=== PATIENT | male | born 1950 | race Caucasian/White ===

== ENCOUNTER 2025-08-08 20:56 | Inpatient (IN) | payer OTHER ==
[~2025-08-08] VITALS: Ht 182.9 cm; Wt 58.0 kg
[2025-08-08 23:30] VITALS: BP 104/87
[2025-08-08] MEDS ORDERED: Amiodarone HCl 450 MG in NS 250 ML IV SCH (23:35)
[2025-08-08 23:45] VITALS: BP 110/89
[2025-08-08] MEDS ORDERED: FLU VACC TS2025(65UP)/MF59C/PF 45 MCG/0.5 ML SYRINGE IM SCH (23:50)
[2025-08-09] VITALS (34 sets, daily range): BP systolic 80–131; BP diastolic 54–115
[2025-08-09 00:04] LABS: BASOPHILS ABSOLUTE AUTO 0.04 K/mm3 (0.00-0.23); BASOPHILS PERCENT AUTO 1 % (0-2); EOSINOPHILS ABSOLUTE AUTO 0.00 K/mm3 (0.00-0.68); EOSINOPHILS PERCENT AUTO 0 % (0-6); Hematocrit 28.8 % (37.0-53.0); Hemoglobin 8.5 g/dL (13.5-17.5); IMMATURE GRAN ABSOLUTE AUTO 0.02 K/mm3 (0.00-0.10); IMMATURE GRAN PERCENT AUTO 0 % (0-1); LYMPHOCYTES ABSOLUTE AUTO 0.65 K/mm3 (0.84-5.20); LYMPHOCYTES PERCENT AUTO 8 % (21-46); MONOCYTES ABSOLUTE AUTO 0.45 K/mm3 (0.16-1.47); MONOCYTES PERCENT AUTO 5 % (4-13); Mean Corpuscular HGB Conc 29.5 g/dL (31.5-36.5); Mean Corpuscular Volume 87 fL (80-100); NEUTROPHILS ABSOLUTE AUTO 7.27 K/mm3 (1.96-9.15); NEUTROPHILS PERCENT AUTO 86 % (41-73); NRBC ABSOLUTE 0.00 K/mm3 (0.00-0.02); NRBC Auto 0.0 /100 WBC (0.0-0.2); Platelet Count 343 K/mm3 (150-400); RDW Coefficient Variation 18.7 % (11.7-14.2); RDW Standard Deviation 59.7 fL (35.1-46.3)
[2025-08-09 00:24] LABS: Alanine Aminotransfer (ALT/SGP 22.0 U/L (12-78); Albumin, Blood 2.3 g/dL (3.4-5.0); Albumin/Globulin Ratio 0.5 (0.8-1.8); Anion Gap 8.0 mmol/L (3-11); Aspartate Aminotrans (AST/SGOT 18.0 U/L (12-37); Bilirubin, Total 1.0 mg/dL (0.1-1.0); Blood Urea Nitrogen 23.0 mg/dL (8-24); CO2, Blood 27.0 mmol/L (21-32); Calcium, Blood 9.2 mg/dL (8.5-10.1); Chloride, Blood 105.0 mmol/L (98-108); Creatinine, Blood 0.83 mg/dL (0.60-1.20); Globulin, Blood 5.1 g/dL (2.2-4.0); Glucose, Blood 162.0 mg/dL (70-99); Magnesium, Blood 2.4 mg/dL (1.6-2.4); Phosphorus, Blood 3.3 mg/dL (2.5-4.9); Potassium, Blood 4.5 mmol/L (3.5-5.5); Sodium, Blood 135.0 mmol/L (136-145); Total Protein, Blood 7.4 g/dL (6.4-8.2)
[2025-08-09] MEDS ORDERED: HYDROcodone 7.5-APAP 325 TAB PO PRN (00:40)
--- NOTE | 2025-08-09 01:07 | NUR ---
ASSUMED CARE PT ARRIVED TO UNIT VIA GURNEY WITH EMS ON 1L NC, LEVO AT 2 AND AMIO AT 1MG. VSS. STAGE 2 COCCYX WOUND WITH MEPALEX C/D/I, PROVIDER AWARE. WAS ABLE TO PLACE LEVO ON SB SHORTLY AFTER ARRIVAL R/T MAPS >80. PT WAS ALSO TITRATED TO ROOM AIR WITH SATS > 94%. AMIO DECREASED TO 0.5MG AT 0050, SCHEDULED TO BE STOPPED AT 1850 ON 08/09 WHICH IS THE 24HR MAGDIEL. BEDSIDE SWALLOW EVAL DONE, PT ABLE TO CLEAR THROAT WELL, DIET ORDERED. SISTER CAME TO BEDSIDE FOR PROVIDER CONSULT W/ HOSP RESIDENT. AND DAUGHTER TO VISIT LATER THIS AM. CALL LIGHT IN REACH.
[2025-08-09] MEDS ORDERED: Vancomycin (Pharmacy Consult) IV SCH (01:20)
[2025-08-09] MEDS ORDERED: LevoFLOXacin 750 MG/D5W 150ML 150 ML IV SCH ×2 (01:30→21:00)
[2025-08-09] MEDS ORDERED: Piperacillin/Tazobactam Sod 4.5 GM in NS 100 ML IV SCH ×2 (01:32→10:00)
[2025-08-09] MEDS ORDERED: NS 250 ML IV PRN (02:15)
--- NOTE | 2025-08-09 05:01 | NUR ---
SHIFT SUMMARY PT A/OX3, CONFUSION OF WHICH TOWN HE IS IN. ABLE TO MAKE NEEDS KNOWN. VSS, MAPS > 65, PT HAS BEEN OFF LEVOPHED SINCE GETTING SETTLED INTO THE UNIT. HR 100'S, AMIO INFUSING AT 0.5MG, TO BE SHUT OFF AT 1850 LATER TODAY. REMAINS ON ROOM AIR, SATS >98%. TOLERATING PO INTAKE. KNAPP IN PLACE AND DRAINING TO GRAVITY, GOOD UOP NOTED. PAIN MANAGED WITH PO MEDS PER NOV. PLAN FOR ECHO AND CHEST CT ON DAY SHIFT. MED REC NOT ABLE TO BE COMPLETED, HAS MED LIST AT HOME, SHE PLANS TO VISIT LATER TODAY. NO ACUTE EVENTS. CALL LIGHT IN REACH.
[2025-08-09] MEDS ORDERED: Lactobacil 2-S.Thermo-Bifido 1 1 Cap PO SCH (09:00)
[2025-08-09] MEDS ORDERED: FentaNYL Citrate 50 MCG/ML 2 ML Injection IV PRN (09:30)
[2025-08-09] MEDS ORDERED: XARELTO20 MG PO (11:23)
[2025-08-09] MEDS ORDERED: BENZ100A PO (11:24)
[2025-08-09] MEDS ORDERED: FERSU300 PO (11:25)
[2025-08-09] MEDS ORDERED: THERA-D2000 UNIT PO (11:25)
[2025-08-09] MEDS ORDERED: OXYC10TA19 PO (11:26)
[2025-08-09] MEDS ORDERED: Flonase 0.05% N16 GM (11:26)
[2025-08-09] MEDS ORDERED: HYDR1TAB94 PO (11:27)
[2025-08-09] MEDS ORDERED: TRAM50 PO (11:27)
[2025-08-09] MEDS ORDERED: PANT40 PO (11:28)
[2025-08-09] MEDS ORDERED: GABA300 PO (11:28)
[2025-08-09] MEDS ORDERED: METO25ER PO (11:28)
[2025-08-09] MEDS ORDERED: Morphine Sulfate 20 MG/1ML 1 ML Oral Syringe PO PRN (12:40)
--- NOTE | 2025-08-09 12:56 | NUR ---
PT UPDATED , (ARMANDO) AND DAUGHTER (LILIAM) AT BEDSIDE. DR. SHAH AND THAI PALLIATIVE CARE NURSE TO ROOM TO DISCUSS GOALS OF CARE. PT ANXIOUS DURING CONVERSATION. PT STS WISHES TO TRANISITION TO HOSPICE CARE AND DECISION DISCUSSED AT LENGTH. FAMILY IS AGREEABLE AND SUPPORTIVE OF PT'S DECISION. POSSIBLE TRANSFER TO FACILITY CLOSER TO HOME DISCUSSED. PLAN OF CARE ONGOING.
[2025-08-09] MEDS ORDERED: Insulin Regular 100 UNIT/ML 10ML Vial SC SCH (16:30)
[2025-08-09] MEDS ORDERED: Atropine Sulfate 1% Opth Soln 2ML BTL SL PRN (17:35)
--- NOTE | 2025-08-09 17:38 | NUR ---
SHIFT SUMMARY PT ORIENTED AND COOPERATIVE T/O FIRST HALF OF SHIFT, THEN BECOMES INCREASINGLY CONFUSED. /DAUGHTER AT BEDSIDE ST PT HAS DISPLAYED SIMILAR BEHAVIOR AT HOME WHEN TIRED. PT REQUIRING REDIRECTION. BED ALARM/CHAIR ALARMS IN USE AND STIMULUS REDUCED. CALL LIGHT W/ IN REACH. PT ENDORSES ANXIETY AND PAIN AND REQUIRED FREQUENT PRN MEDICAITON T/O SHIFT. PT TRANISITIONED TO COMFORT CARE AT APPROX 1730. CURTAIN LEFT OPEN FOR FREQUENT OBSERVATION. PLAN FOR SITTER FOR NOC SHIFT. PT AMBULATES W/ WALKER AND MINIMAL ASSISTANCE. PT UP TO COMMODE MULTIPLE TIMES BUT DOES NOT HAVE BM DURING SHIFT. PT ON ROOM AIR, OCCASSIONALLY REQUESTS 1L VIA NC FOR COMFORT. SATS>95%. LUNGS COARSE ON RIGHT SIDE AND ABSENT/ DIMINISHED ON L. SIDE. PT HAS HACKING COUGH W/ WHITE SPUTUM PRODUCTION. PT AFIB RATE OF 100-110S VIA CONTINUOUS MONITOR. BP STABLE W/ MAP>65. SYSTOLICS 90S. PT ON REG DIET W/ MINIMAL APPETITE. TOLERATING PO MEDICATIONS W/OUT INCIDENT. KNAPP CATH PATENT AND DRAINING TO GRAVITY W/ GOOD APPETITE. PT AFEBRILE PLAN TO DC AMIODARONE AT 1850 PER ORDER. CALL LIGHT W/ IN REACH. PLAN OF CARE ONGOING
[2025-08-09] MEDS ORDERED: Morphine Sulfate 20 MG/1ML 1 ML Oral Syringe SL PRN (17:40)
--- NOTE | 2025-08-09 18:25 | NUR ---
PALLIATIVE CARE VISIT: MET WITH PT/FAMILY THIS MORNING AT 1130 TO DISCUSS COMFORT CARE AND HOSPICE CARE DUE TO RN REPORTING PT WAS STATING HE JUST WANTED COMFORT AND NO LONGER WANTED CURATIVE TREATMENT. FAMILY WERE EDUCATED ON SERVICE BENEFIT. GAVE SOME TIME FOR FAMILY AND PT TO DISCUSS THEMSELVES. AT 1700 MET AGAIN WITH ARMANDO AND DAUGHTER LILIAM. THEY ARE AGREEABLE TO COMFORT CARE NOW AND DISCHARGE WITH HOSPICE SERVICES. THEY ALREADY HAD A REFERRAL TO [facility]. CALLED AND VERIFIED WITH CLYDE AT [phone] SHAH TO CONFIRM CHOICES OF COMFORT CARE AND HOME WITH HOSPICE. ORDERS RECEIVED TO PLACE COMFORT CARE ORDERS. START ROXANOL 5-10 MG SL FOR AIR HUNGER AND PAIN, USE XANAX FOR AGITATION ALREADY ON ORDER. WILL OPTIMIZE HEALTH BY CONTINUING ORAL ABX WITH LEVAQUIN 750 MG PO DAILY, STOP ALL IV MEDICATIONS. OK TO START MELATONIN 5 MG PO AT BEDTIME FOR C/O DIFFICULTY SLEEPING. WILL CONTINUE XARELTO. COMFORT CARE ORDERS PLACED REQUESTED. CONTACTED [facility] AND THEY REQUESTED WINDOW SHADE INSTALLER TO REACH OUT TO THEM TOMORROW. SENT MESSAGE.
--- NOTE | 2025-08-09 22:31 | NUR ---
TRANFER SUMMARY PT WAS TRANFERRED UPSTAIRS VIA BED WITH 2 RNS AND A CLINICAL SITTER. PT ON RA, VSS. SALINE LOCKED. ALL BELONGINGS AND CHART WERE MOVED WITH PT TO NEW ROOM. REPORT WAS CALLED TO ONCOMING RN PRIOR TO TRANSFER, ALL QUESTIONS ANSWERED. PT HAD SOME CONFUSION SINCE START OF SHIFT, CONFUSION WAS NOT WORSE AT TIME OF TRANSPORT. WAS NOTIFIED OF PT NEW ROOM. NO ACUTE EVENTS.
--- NOTE | 2025-08-10 06:04 | NUR ---
SHIFT SUMMARY PT ADMITTED FOR SEPTIC SHOCK PNEUMONIA. PT HAS CHRONIC KNAPP, IS PRONE TO SKIN TEARS. PT IS COMFORT CARE.PT IS ON ROOM AIR AND HAS DECLINING MENTATION. PT HAS MEPILEX ON COCCYX. PT TRIES TO GET OUT OF BED AND WALK BUT IS EXTREME FALL RISK AND HARD TO REDIRECT. PT HAS SITTER IN ROOM. BED IS AT LOW POSITION, RAILS TIMES TWO, AND CALL LIGHT WITHIN REACH.
--- NOTE | 2025-08-10 15:24 | NUR ---
COMFORT CARE SUPPORTIVE VISIT. BEDSIDE NURSE REPORTS AGGITATION IS POORLY CONTROLLED. VERBAL ORDER RCV'D FOR A ONE TIME DOSE, 1 MG ALPRAZOLAM AND INCREASE FREQUENCY OF PREVIOUSLY ORDERED 0.5 MG ALPRAZOLAM. RECOMMENDED TO BEDSIDE RN TO ADMINISTER NORCO PER EMAR. PT REPORTS ABDOMINAL PAIN. PER FAMILY, LAST BM 08/07/25. RCV'D ORDER FOR BOWEL CARE. ORDERS PLACED ACCORDINGLY. JOINT VISIT WITH AMMY DELGADILLO. EDUCATION PROVIDED TO SPOUSE AND DTR RE: WHAT SERVICES HOSPICE PROVIDES AND THAT HOSPICE IS COVERED UNDER THE MEDICARE BENEFIT. FAMILY IS WORKING ON GETTING CAREGIVER ASSISTANCE THROUGH THE [facility]. PC TO REMAIN AVAILABLE NEEDED.
[2025-08-10] MEDS ORDERED: Magnesium Hydroxide Conc 10 ML UDC PO PRN (16:00)
[2025-08-10] MEDS ORDERED: Magnesium Hydroxide Conc 10 ML UDC PO ONE (16:00)
--- NOTE | 2025-08-10 18:42 | NUR ---
SHIFT SUMMARY PATIENT ALERT AND ORIENTED X2. PATIENT IMPULSIVE AT TIMES. CAMERA PERSONNEL QUALITY ASSURANCE AUDITOR IN ROOM. PATIENT AGITATED AND COMPLAIN OF PAIN THROUGHOUT SHIFT MEDICATED PER EMAR. FAMILY AT BEDSIDE ASSISTING WITH CARE. BED LOCKED, ALARM ON, AND LOWEST POSITION. CALL LIGHT WITHIN REACH.
--- NOTE | 2025-08-11 01:45 | NUR ---
INTERMITTENT ATTEMPTS TO GET OOB, BED ALARM AND CAMERA IN USE. PAIN MEDS AND FLUIDS GIVEN. CURRENTLY RESTING QUIETLY WITH HOB ELEVATED. CALL LIGHT IN REACH
[2025-08-11] MEDS ORDERED: Morphine Sulfate 20 MG/1ML 1 ML Oral Syringe SL PRN (02:10)
--- NOTE | 2025-08-11 03:43 | NUR ---
BOX PERSON SUMMARY ADMIT DX SEPTIC SHOCK. AM RN REPORTED CARE FOR COMFORT MD AND FAMILY WERE IN WITH PT AT SHIFT CHANGE. PT HAS METASTATIC LUNG CANCER. AWAKE INTERMITTENTLY TRYING TO GET OOB WITH CAMERA AT BEDSIDE TELLING PT TO STAY IN BED. RECEIVING PAIN MEDS FREQUENTLY - SEE MAR FOR DETAILS. INTERMITTENT STAFF AT BEDSIDE FOR PT COMFORT, RESTING QUIETLY AT INTERVALS. CALL LIGHT IN REACH, RAILS UP X3, BED ALARM ON, CAMERA ON AND BED IN LOW POSITION FOR SAFETY. WILL CONTINUE TO MONITOR.
--- NOTE | 2025-08-11 10:54 | NUR ---
"S[iritual Care Visit | Pt./ nurse request Pt. is resting but responds when this hand tool filer comes to bedside. Pt. displays evidence of being weak, but can clearly communicate. Pt. verbalized his desire for forgiveness as he is a DNR. Listened and led Pt. is prayers of confession. Pt. reached out his hand in gratitude afterward. Will remain available to the Pt."
--- NOTE | 2025-08-11 19:17 | NUR ---
SHIFT SUMMARY: PATIENT A+O X2-3 THROUGHOUT THIS DAY. MEDICATED FOR PAIN THOUGHOUT THIS SHIFT. SEE EMAR FOR DETAILS. PATIENT HAD COMPLAINTS OF CONSTIPATION, MILK OF MAG GIVEN TO PATIENT THIS PM. PLAN TO CONTINUE COMFORT MEASURES AT THIS TIME. COMFORT CART AT BEDSIDE FOR FAMILY. WILL GIVE REPORT TO ONCOMING RN.
--- NOTE | 2025-08-12 03:47 | NUR ---
SHIFT SUMMARY: PT IS A&O TO SELF, AND SOMETIMES PLACE. PT IS ON COMFORT CARE. PT RECIEVING PAIN MEDICATION PER eMAR. BED ALARM IS ON. BED IS LOW AND LOCKED. CALL LIGHT IS WITHIN REACH.
--- NOTE | 2025-08-12 08:00 | NUR ---
COMFORT CARE SUPPORTIVE VISIT PT LYING SUPINE, COVERS PULLED AND RESTING WITH EYES CLOSED. NO S/SX OF DISTRESS NOTED AT THIS TIME. PC TO REMAIN AVAILABLE NEEDED.
--- NOTE | 2025-08-12 15:30 | NUR ---
assumed care of pt. PT IS A/O X 1 VERY FORGETFUL YET APPROPRIATE WITH CARE. PT C/O PAIN AND IS BEING TREATED PER PROTOCOL. PT IS STAND BY ASSIST. WAS ABLE TO FEED SELF BREAKFASST WITH A LITTLE SET UP. CALL LIGHT WITHIN REACH BUT PT HAS NOT BEEN ABLE TO MAKE NEEDS KNOWN, BED ALARM ON.
--- NOTE | 2025-08-12 15:31 | NUR ---
STUDENT AIDS GAVE PT BATH PT JOSETTE WELL AND IS NOW LAYING QUIETLY IN BED, PT MEDICATED FOR PAIN.
--- NOTE | 2025-08-12 15:32 | NUR ---
PT SLEEPING PEACEFULLY IN BED LUNCH SET UP AT BEDSIDE. ALLOWING PT TO SLEEP FOR NOW.
--- NOTE | 2025-08-12 19:02 | NUR ---
PT AWAKE AND ALERT APPROPRIATE WITH CARE. FEEDING SELF DINNER. PT MEDICATED FOR PAIN PER NOV. AND IS NOW SLEEPING. SISTER WAS AT BEDSIDE BUT WENT HOME AND WILL RETURN IN THE MORNING.
[2025-08-12 19:07] VITALS: BP 97/74
--- NOTE | 2025-08-13 03:46 | NUR ---
HOSPITALIST CONTACT PT IV'S REMOVED FOR NON PATENCY AND TENDERNESS. PT IS ON COMPFORT CARE AND GETTING ORAL CC MEDS. PT HAS A KNAPP PLACED BY TIKI PRIOR TO DIRECT ADMIT. CHART NOTED BUT NO ORDER PLACED. CALL TO HOSPITALIST, SPOKE TO DR DIAZ. NEW ORDER FOR NO IV ACCESS, CONFIRMED ORDER FOR KNAPP FOR COMFORT CARE, AND DC IV FENTANYL.
--- NOTE | 2025-08-13 06:05 | NUR ---
SPECIAL EDUCATION ADMINISTRATOR SUMMARY PT AWAKE OFF/ON T/O THE NIGHT. PT REPORTING DISCOMFORT/PAIN WHEN AWAKE. MEDS GIVEN PER NOV. ASSISTED PT WITH REPOSITIONING T/O THE NIGHT. IV'S REMOVED. NO IV ACCESS ORDERED. MEPILEX DRESSING TO COCCYX CHANGED. MEPILEX PLACED TO YUSEF PROMINENCE OF SPINE FOR PROTECTION. EDUCATED PT ON PU PREVENTION AND HEALING. PT ANXIOUS WHEN AWAK--SAYING "I JUST WANT TO GO HOME" REGULAR INTERVAL ROUNDING COMPLETE AND COMFORT ASSESSMENTS AT LEAST EVERY 4 HOURS. CALL LIGHT ACCESSIBLE. BED ALARM IN PLACE. CARE ONGOING.
[2025-08-13 07:23] VITALS: BP 104/72
--- NOTE | 2025-08-13 09:55 | NUR ---
PALLIATIVE CARE COMFORT CARE VISIT: ROUNDED ON PT TODAY. HE IS SITTING IN CHAIR, HE IS AWAKE, AND APPEARS TO BE IN NO DISTRESS. HE REPORTS HIS PAIN IS MANAGED. RR ARE E/U. PT DENIES NEEDS. WE DISCUSS DISCHARGE PLAN. HE WAS UNAWARE OF THE PLAN TO DISCHARGE TO [facility]. WE DISCUSSED THIS AND HE IS AGREEABLE TO THIS PLAN.
--- NOTE | 2025-08-13 16:09 | NUR ---
SHIFT SUMMARY PT ON COMFORT CARE, AWAITING HOSPICE PLACMENT. PT AOX4, COOPERATIVE, ABLE TO MAKE NEEDS KNOWN. PT IS 1 PERSON ASSIST IN ROOM, ON ROOM AIR. KNAPP INTACT AND DRAINING TO GRAVITY. NO ACUTE ISSUES TOOK PLACE THIS SHIFT. AGAIN, AWAITING HOSPICE PLACEMENT. BED IN LOWEST POSITION, CALL LIGHT WITHIN REACH.
--- NOTE | 2025-08-13 17:38 | NUR ---
"Spiritual Care Visit | Comfort Care Pt. is awake in be and welcomes my visit. Facilitated an update. P.t verbalized that he wasn't sure what his D/C plans were, and displayed some level of frustration about it. Listen with interest and empathy. Considered matters of his yola story. Prayed with the Pt. Pt. verbalzied gratitude for the spiritual care visit."
--- NOTE | 2025-08-14 04:38 | NUR ---
PT COMPLAINING OF DISCOMFORT SEVERAL TIMES THROUGHOUT THE NIGHT, REQUESTING ROXINUL FREQUENTLY, C/O CONSTIPATION, GIVEN MILK OF MAG AND AN ENEMA WAS ORDERED. PT REFUSING REPOSITIONING AND PILLOW SUPPORT, BUT IS ABLE TO MAKE MODERATE ADJUSTMENTS IN BED. PT HAS STRONG NONPRODUCTIVE COUGH.
--- NOTE | 2025-08-14 18:41 | NUR ---
SHIFT SUMMARY PATIENT REQUIRES MEDICATIONS FOR PAIN MANAGMENT. A/O X 3-4. FAMILY IN TO VISIT THROUGHOUT SHIFT.
--- NOTE | 2025-08-15 16:32 | NUR ---
PATIENT REPORTING SYMPTOMS OF UTI, URINE SENT. PATIENT ALSO STATES THAT PSYCH DOC STATED HE COULD LEAVE WHEN HOSPITALIST DEEMS OKAY. PLACED CALL TO DR SHAH AFTER READING NOTES, LEFT MESSAGE. BREAK NURSE STATED SHE RECEIVED CALL BACK FROM DR SHAH WHO REPORTEDLY STATED DISCHARGE WOULD BE DISCUSSED TOMORROW MORE IN DEPTH. PATIENT MADE AWARE AND IS SO FAR AGREEABLE TO THIS PLAN.
--- NOTE | 2025-08-15 17:29 | NUR ---
SHIFT SUMMARY NO SIGNIFICANT CHANGES TO REPORT.
--- NOTE | 2025-08-16 06:00 | NUR ---
SHIFT SUMMARY PATIENT IS COMFORT CARE. PATIENT HAS HAD NO ACUTE EVENTS THIS SHIFT. PATIENT HAS BEEN MEDICATED FOR PAIN AND ANXIETY THIS SHIFT. PATIENT HAS BEEN ANXIOUS AND IMPULSIVE THIS SHIFT, REORIENTED WITH MINIMAL SUCCESS. BED ALARM IS ON. BED IN LOWEST AND LOCKED POSITION. CALL LIGHT IN PLACE.
--- NOTE | 2025-08-16 06:37 | NUR ---
NURSE NOTE ATTEMPTED TO CONTACT PROVIDER. NO ANSWER. PATIENT PULLED KNAPP CATHETER OUT. PATIENT HAD BLOOD AROUND PENIS REGION. CLEANED PATIENT UP AND NO ADDITIONAL BLOODY DISCHARGE. CHARGE NURSE IS AWARE. WILL PASS THIS TO DAYSHIFT TO PASS ALONG TO DAY PROVIDER.
--- NOTE | 2025-08-16 08:48 | NUR ---
pt sitting up in chair for breakfast, a/ox2-3, pleasant and cooperative with care, follows commands well, forgetful, states pain is 8/10, his scheduled morphine was given, swallows po meds without diff, lungs are clear in upper guo, dim in bases, resp even and unlabored, no cough noted, on r/a, hrr, murmur noted, ppp+2, cap refill<3 sec, vs stable, afebrile, btx4, abd flat soft nontender, voids without diff, per report from night rn he got up unassisted and removed his thompson with minimal bleeding, has dressing to coccyx, is a sba to chair, macey, call light in reach.
--- NOTE | 2025-08-16 09:29 | NUR ---
pt states no pain at this time. call light in reach.
--- NOTE | 2025-08-16 12:37 | NUR ---
PALLIATIVE CARE VISIT: ROUNDED ON PATIENT THIS MORNING DUE TO REPORT PT HAD INCREASED/UNMANAGED PAIN AND ANXIETY THROUGH THE NIGHT. AT 1030 PT IS AWAKE AND IN BED, ABLE TO HAVE CONVERSATION AND ANSWERING QUESTIONS APPROPRIATELY. PT REPORTED HIS PAIN IS MANAGED AT THIS TIME. PAINAD IS 0/10. PLODDING OPERATOR REPORTED PT PULLED KNAPP CATHETER OUT LAST NIGHT AND NOW IS URINATING KD RED BLOOD AND BLOOD IS DRIPPING FROM URETHRA. PT DENIES PAIN IN GROIN/PENIS AREA. WHEN ASKED WHY HE PULLED HIS CATHETER OUT PT STATED "BECAUSE IT WAS HURTING ME." PT LIKELY WAS HAVING INCREASED DISCOMFORT FROM KNAPP CATHETER WHICH WAS CAUSING ICREASED AGITATION. PT NO LONGER EXHIBITING S/S OF AGITATION OR PAIN. ASKED PT IF HE WANTED A NEW KNAPP CATHETER PLACED AND HE STATED "NO". PT ABD IS SNT AT THIS TIME. NO S/S OF DISTENTION OR URINARY RETENTION. CONSULTED WITH PHARMACY AND THEY DO NOT RECOMMEND AN INCREASE IN MORPHINE ER TABS PT IS NOT TAKING ENOUGH ROXANOL OR NORCO TO JUSTIFY AN INCREASE. UPON FURTHER MEDICATION REVIEW, XARELTO WAS DOCUMENTED GIVEN. NOTIFIED DR. HANDY PT IS BLEEDING KD RED BLOOD AND XARELTO WAS GIVEN THIS MORNING. DR. HANDY STATED HE WOULD TALK TO PT.
--- NOTE | 2025-08-16 17:52 | NUR ---
pt had an uneventful morning but got painful this afternoon, have medicated per emar, ambulated to the bathroom with assist, did have some blood the first time he voided, no further blood noted throughout the day. call light in reach.
--- NOTE | 2025-08-17 04:38 | NUR ---
SHIFT SUMMARY PATIENT IS ALERT AND ORIENTED 2-3X. PATIENT HAS HAD NO ACUTE EVENTS THIS SHIFT. PATIENT HAS HAD A SITTER DUE TO INCREASED IMPULSIVITY. PATIENT MEDICATED FREQUENTLY FOR PAIN AND ANXIETY THIS SHIFT. BED ALARM ON. BED IN LOCKED AND LOWEST POSITION. CALL LIGHT IN PLACE.
--- NOTE | 2025-08-17 08:27 | NUR ---
Palliative care visit: Rounded on pt after reviewing nurse notes indicating pt had sitter due to impulsivity. Pt is sitting up in chair this morning eating pancakes for breakfast. He is awake, alert, no s/s of distress and able to discuss his night. Pt states he is not anxious, he just wants to be home in his own bed. Pt reports pain is managed. Medication review and noted pt is getting either norco or roxanol q2-3 hours through the night. Pt has melatonin for sleep. Spoke to primary RN, pt is no longer bleeding from penis. Urine is clear yellow. RN dismissed the sitter. Spoke to MD. He is going to order sleep aid for pt and increase morphine ER to 15 mg q8 hours.
--- NOTE | 2025-08-17 19:25 | NUR ---
SHIFT SUMMARY COMFORT CARE PT. MS CONTIN INCREASED TO TID. ROXINOL Q2 FOR BREAKTHROUGH PAIN. XANEX Q4 FOR ANXIETY. PT IMPULSIVE AND FREQUENTLY GETTING OUT OF BED, GAIT UNTEADY, BED/CHAIR ALARM FOR SAFETY. NO ACUTE CHANGES, CALL LIGHT IN REACH.
--- NOTE | 2025-08-18 06:38 | NUR ---
CERTIFIED ORTHOTIST/PEDORTHIST SUMMARY PT GIVEN MEDS PER MAR AND COMFORT ASSESSMENT COMPLETED T/O THE SHIFT. PT IS OFTEN WAKEFUL T/O THE NIGHT, IMPULSIVE OOB FREUQENTLY. PT IS MOSTLY DIRECTABLE. TOWARD THE END OF SHIFT, PT BECAME MORE AGITATED AND LESS DIRECATBLE. PT INSISTING HE "RATHER BE IN NURSING HOME" ALTHOUGH PT NOT ABLE TO STATE CLEARLY WHERE HE IS OR WHY. BED ALARM IN PLACE. REGULAR INTERVAL ROUNDING COMPLETE. PT VOIDING WELL. POOR ORAL INTAKE AND INCREASED WEAKNESS NOTED. CALL LIGHT ACCESSIBLE. CARE ONGOING.
--- NOTE | 2025-08-18 07:25 | NUR ---
COMFORT CARE SUPPORTIVE VISIT. PER PRIMARY RN, PT IS FINALLY RESTING AFTER RX INTERVENTION APX 1.5 HRS AGO. NO CURRENT S/SX OF DISTRESS NOTED AT THIS TIME. PC TO REMAIN AVAILABLE NEEDED.
--- NOTE | 2025-08-18 18:22 | NUR ---
SHIFT SUMMARY PT DROWSY THIS MORNING, WHEN HE WOKE UP MORE BEHAVED PARANOID THAT WE WERE HOLDING HIM AGAINST HIS WILL BEFORE BECOMING MORE ORIENTED THIS AFTERNOON. MS CONTIN TID AND ROXINOL FOR BREAKTHROUGH PAIN GIVEN X1. WOUND CLEANSED, PHOTOGRAPHED, AND REBANDAGED PER ORDER, PHOTO IN CHART. FREQUENT ATTEMPTS TO GET OUT OF BED. LESS REDIRECTABLE THAN YESTERDAY. FREQUENT ROUNDING, CALL LIGHT IN REACH, BED ALARM ON FOR SAFETY.
--- NOTE | 2025-08-19 04:47 | NUR ---
SHIFT SUMMARY ADMITTED FOR PNEUMONIA/SEPSIS. DNR CODE. PLAN IS FOR PLACEMENT. HE IS ON COMFORT CARE. HE HAS REQUESTED HIS PAIN MEDICATION APPROPRIATELY THIS SHIFT. HE IS REDIRECTABLE. A&O X2-3. PALLIATIVE CARE IS CONSULTED. STAGE 2 COCCYX ULCER COVERED WITH MEPILEX. WE HAVE BEEN TURNING HIM WHEN HE LAYS IN BED TO LONG IN ONE POSITION.
--- NOTE | 2025-08-19 09:40 | NUR ---
ROUNDED ON PATIENT. HE WAS SITTING UP IN BED. HE HAD JUST FINISHED EATING BREAKFAST AND HAD EATEN APPROX 50%. HE WAS PLESANT AND COOPERATIVE. HE EXPRESSED NO NEEDS AT THIS TIME. APPEARED COMFORTABLE.
--- NOTE | 2025-08-19 14:16 | NUR ---
ROUNDED ON PATIENT PER FAMILY REQUEST ASHLEY AT BEDSIDE. PATIENT RELAYED THAT HE "DIDN'T REALIZE THAT WHEN HE AGREED TO HOPSICE HE WOULDN'T BE ALLOWED TO USE THE RESTROOM ALONE ANYMORE" EXPLAINED THAT THOSE RULES WERE IN PLACE TO KEEP HIM SAFE AND NO MATTER THE DIRECTION OF CARE HE WOULD STILL REQUIRE ASSISTANCE TO THE RESTROOM IF THE STAFF FELT HE WAS UNSAFE TO AMBULATE ALONE. THERE WAS SOME CONFUSION ABOUT PLAN UPON DISCHARGE. REQUESTED CARE COORDINATION TO JOIN THE CONVERSATION. JOHN FROM CAME TO DISCUSS PLAN WITH PATIENT AND SPOUSE. PATIENT REQUESTING PHONE NUMBER FOR [facility] TO ENSURE THAT HE WAS RECIEVING ALL OF HIS OPTIONS.
--- NOTE | 2025-08-19 14:28 | NUR ---
Spiritual Care Visit. Pt. is awake and sitting in a chair when he welcomes my visit. Pt. is pleasant and shakes this clinical reimbursement specialist's hand. Spouse is present. Pt. verbalized his desire to talk to a [facility] community engagement representative before he makes a final hospice choice. Listen with empathy and interest. Prayed with the Pt. Pt. verbalized gratitude for the spiritual care visit.
--- NOTE | 2025-08-19 18:32 | NUR ---
SHIFT SUMMARY PATIENT ON COMFORT CARE. PATIENT ALERT AND INTERACTIVE. AMBULATING WITH ASSISTANCE AND A WALKER. PATIENT MEDICATED PER MAR WITH PAIN MEDS NEEDED. FAMILY AT BEDSIDE THROUGHOUT THE DAY. PATIENT EATING SMALL AMOUNTS AND DRINKING SOME. MEPILEX DRESSING REMOVED AFTER SHOWER. WOUNDS CLEANSED AND OPEN TO AIR. PATIENT HAD LARGE BM AND DRESSING SOILED AFTER SHOWER. SKIN EXCORIATED FROM ADHESIVE. FAMILY REQUESTING TO SPEAK WITH PALLIATIVE CARE TO REVIEW CURRENT PATIENT STATUS.
--- NOTE | 2025-08-20 04:43 | NUR ---
SHIFT SUMMARY ADMITTED FOR PNEUMONIA/SEPTIC SHOCK. DNR CODE. NOW COMFORT CARE. PLAN IS FOR PLACEMENT. [facility] PATIENT. ON RA, REGULAR DIET, STANDBY ASSIST-BRP. A&O X3-4, MENTATION FLUXUATES. HE IS CONTINENT. APPROPRIATELY CALLED FOR HIS NEEDS THIS SHIFT. PAIN MEDICATION GIVEN. HX: LUNG CANCER.
[2025-08-20] MEDS ORDERED: ACET325 PO (11:56)
[2025-08-20] MEDS ORDERED: ALPR.5 PO (11:57)
[2025-08-20] MEDS ORDERED: Norco 7.5-3251 EACH PO (11:57)
[2025-08-20] MEDS ORDERED: QUETIAPINE FUMA50 M3 PO (11:58)
[2025-08-20] MEDS ORDERED: MELATONIN5 M1 PO (11:58)
[2025-08-20] MEDS ORDERED: MORP15ER PO (12:00)
--- NOTE | 2025-08-20 12:00 | NUR ---
DAREN PRINTED OF REGISTRY GIVEN TO CC AND SENT COPY TO MEDICAL RECORDS
--- NOTE | 2025-08-20 14:13 | NUR ---
DISCHARGE NOTE- [facility] TO TRANSPORT PATIENT TO [facility]. REPORT GIVEN TO JANIE GONZALEZ [facility].
== END 2025-08-20 12:00 | disposition home or self-care (01) | DRG 640 ==
LOC: ICUE 20:56 → MEDS 23:12 → ICUE 23:12 → MEDS 08-09 22:25
PROVIDERS: Student in an Organized Health Care Education/Training Program; ADMIT Student in an Organized Health Care Education/Training Program
PROC: 3E033XZ Introduction of Vasopressor into Peripheral Vein, Percutaneous Approach (ICD-10-PCS; principal; 2025-08-08)
PROC: 3E02340 Introduction of Influenza Vaccine into Muscle, Percutaneous Approach (ICD-10-PCS; 2025-08-08)
PROC: 3E03329 Introduction of Other Anti-infective into Peripheral Vein, Percutaneous Approach (ICD-10-PCS; 2025-08-09)
DX: E86.1 Hypovolemia (principal); J18.9 Pneumonia, unspecified organism; C34.92 Malignant neoplasm of unspecified part of left bronchus or lung; C78.7 Secondary malignant neoplasm of liver and intrahepatic bile duct; J44.0 Chronic obstructive pulmonary disease with (acute) lower respiratory infection; J98.11 Atelectasis; E87.5 Hyperkalemia; Z66 Do not resuscitate; I95.9 Hypotension, unspecified; E87.21 Acute metabolic acidosis; I48.0 Paroxysmal atrial fibrillation; J44.9 Chronic obstructive pulmonary disease, unspecified; Z51.5 Encounter for palliative care; E78.5 Hyperlipidemia, unspecified; I10 Essential (primary) hypertension; G47.00 Insomnia, unspecified; F41.9 Anxiety disorder, unspecified; R45.1 Restlessness and agitation; N40.0 Benign prostatic hyperplasia without lower urinary tract symptoms; L89.152 Pressure ulcer of sacral region, stage 2; E11.622 Type 2 diabetes mellitus with other skin ulcer; Z23 Encounter for immunization; Z79.899 Other long term (current) drug therapy; Z79.891 Long term (current) use of opiate analgesic; Z79.2 Long term (current) use of antibiotics; Z87.891 Personal history of nicotine dependence
CPT/HCPCS: 36415; 71260; 80053; 82947; 83605; 83735; 84100; 85025; 87040; 93306; A9270; J0282; J1815; J1956; J2543; J3010; J3373; J7050; Q9967